=== PATIENT | female | born 1970 | race Caucasian/White ===

== ENCOUNTER 2017-03-06 18:15 | Emergency (ER) | payer SELFPAY ==
--- NOTE | 2017-03-06 18:39 | ED Physician Documentation ---
General Adult - HISTORIAN Historian: patient - HPI Stated Complaint: r sided cp Chief Complaint: General Adult Additional Information: Right sided chest pain began last evening. Sharp and stabbing and worse with deep breath. Radiates around to right back. Never had this pain before. Has been driving to [place]. Can't take deep breath as pain becomes even more intense. Likewise, cough. No fever, unusual activity. No heart problems in the past. - ROS CONST: no problems - PAST HX Past History: none Surgeries/Procedures: cholecystectomy, hysterectomy, other (breast augmentation) Allergies/Adverse Reactions: Allergies Allergy/AdvReac Type Severity Reaction Status Date / Time Penicillins Allergy Severe Anaphylaxis Verified 03/06/17 19:07 morphine AdvReac Intermediate Dizziness Verified 03/06/17 19:09 Home Medications: Ambulatory Orders Medication Instructions Recorded Orphenadrine Citrate 100 mg PO 03/06/17 Ropinirole HCl 1 mg PO 03/06/17 Trazodone HCl [Trazodone HCl] 50 mg PO 03/06/17 - SOCIAL HX Smoking History: cigarettes Alcohol Use: occasionally Drug Use: methamphetamines (none since 2003; 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 History: Evaluate lung hwang. Findings: PA lateral chest demonstrate a normal cardiac and mediastinal silhouette. No focal infiltrate. No effusion. No blunting of the costophrenic margins. Osseous structures are appropriate for age. Impression: No acute process. Electronically signed on Mar 06, 2017 7:20:01 PM CDT by: Leonardo Coleman ED Results Lab/Radiology - Orders Orders: ED Orders Category Date Time Status Place IV Lock 1T Care 03/06/17 18:34 Ordered CHEST P.A.&LAT 2 VIEWS [RAD] Stat Exams 03/06/17 Ordered CBC/PLATELET/DIFF Routine Lab 03/06/17 Ordered CMP Routine Lab 03/06/17 Ordered TROPONIN I (cTnI) Stat Lab 03/06/17 Ordered UA W/MICRO IF INDICATED Routine Lab 03/05/17 18:34 Ordered Ketorolac Tromethamine [Toradol] Med 03/06/17 18:34 Once 30 mg IVP NOW ONE NORMAL SALINE @ 1000 MLS/HR ( 1000ml BOLUS) Med 03/06/17 18:36 Ordered 0.9 % Sodium Chloride [Normal Saline] 1,000 ml IV Q1H Orphenadrine Citrate [Norflex] Med 03/06/17 18:34 Once 60 mg IV NOW ONE General Adult Physical Exam - PHYSICAL EXAM GENERAL APPEARANCE: moderate distress EENT: eye inspection normal, ENT inspection normal (dentures), pharynx normal NECK: normal inspection, supple RESPIRATORY: breath sounds normal, other (palpation right mid sternal border reproduces her pain) CVS: reg rate & rhythm, heart sounds normal, no murmur ABDOMEN: soft, normal bowel sounds, non-tender RECTAL: deferred BACK: normal inspection SKIN: warm/dry, normal color EXTREMITIES: normal range of motion (gait, stance), no evidence of injury NEURO: CN's nml as tested, motor nml, sensation nml, cognition normal Discharge Clincal Impression: Costochondritis, acute Referrals: Primary Doctor,No [Primary Care Provider] - 2 Days Additional Instructions: You can take 2 Aleve twice a day with food for the next week. You can also take 1000 mg tylenol up to three times a day. If yo uknow you are about to sneeze or cough, apply pressure to the sore area with your hands or a pillow. This will decrease movement and pain. Home Medications: Ambulatory Orders Orphenadrine Citrate 100 mg PO 03/06/17 Ropinirole HCl 1 mg PO 03/06/17 Trazodone HCl [Trazodone HCl] 50 mg PO 03/06/17 Condition: Good Disposition: 01 HOME, SELF-CARE Decision to Admit: NO Decision Time: 19:50
[2017-03-06 18:47] LABS: BASOPHILS % 0.8 (0.0-1.5); EOSINOPHILS % 0.9 % (0.0-6.8); MEAN CORPUSCULAR HEMOGLOBIN 28.9 pg (28.0-34.0); MEAN CORPUSCULAR VOLUME 86.5 fl (80.0-100.0); MONOCYTES % 6.8 % (0.0-11.0); NEUTROPHILS # 3.4 # k/uL (1.4-7.7)
[2017-03-06 18:59] LABS: eGFR (African) > 60; eGFR (Non-African) > 60
[2017-03-06] MEDS: 0.9 % SODIUM CHLORIDE 1,000 ML IV ONE (19:15)
[2017-03-06] MEDS: KETOROLAC TROMETHAMINE 30 MG/1ML VIAL IVP ONE (19:15)
--- NOTE | 2017-03-06 19:24 | Diagnostic Imaging Report ---
CHRISTAL MACKENZIE~ [facility] [address] [facility] [address] [place], [place]. [address] ~ ~ ~ ~ Report Submission Date: Mar 06, 2017 7:20:01 PM CDT Patient ~ Study Name: AGUSTINA GIRON ~ Date: Mar 06, 2017 6:51:32 PM CDT ~ Modality Type: CR Gender: F ~ Description: CHEST : 68 ~ Institution: [facility] Physician: CHRISTAL MACKENZIE ~ ~ ~ ~ Examination: PA and lateral chest. History: Evaluate lung hawng. Findings: PA lateral chest demonstrate a normal cardiac and mediastinal silhouette. No focal infiltrate.~ No effusion.~ No blunting of the costophrenic margins.~ Osseous structures are appropriate for age. Impression: No acute process. ~ Electronically signed on Mar 06, 2017 7:20:01 PM CDT by: Leonardo QUIROZ
[2017-03-06] MEDS: ORPHENADRINE CITRATE 60 MG/2ML IV ONE (19:51)
[2017-03-06 20:21] VITALS: BP 129/76
== END 2017-03-06 20:05 | disposition home or self-care (01) ==
LOC: ED 18:15
DX: M94.0 Chondrocostal junction syndrome [Tietze] (principal)
CPT/HCPCS: 71020; 80053; 84484; 85025; 93005; J1885; J7030; 96361; 96374; 99283; S1016